=== PATIENT | male | born 1940 | race Caucasian/White ===

== ENCOUNTER 2017-06-26 09:21 | Emergency (ER) | payer MEDICARE, OTHER ==
--- NOTE | 2017-06-26 09:51 | ERPHSYRPT ---
- History of Present Illness Time Seen by Provider: 06/26/17 09:37 Source: patient, family ( and son) Patient Subjective Stated Complaint: Pt states "I fell a couple of days ago and hurt my back." Triage Nursing Assessment: Pt alert and oriented X3, skin pwd. Pt ambulates with an unsteady gait, uses a cane. Pt slightly hunched over, groaning. Physician History: CC: fall Hx: 76 y/o patient of Dr Henry with low back pain after falling 2 days ago. Told family this AM he thinks his back is broke. He hit his head and had a large gooseegg. He denies syncope or LOC. He has some chronic confusion and some tardive dyskinesia. No chest or abd pain. He smokes. Denies shortness of breath. Takes ASA daily. Occurred: days ago (2) Loss of Consciousness: unsure Allergies/Adverse Reactions: No Known Drug Allergies Allergy (Unverified 06/26/17 09:36) Home Medications: Meclizine HCl 25 mg [Antivert 25 mg] 25 mg PO DAILY 06/26/17 [History] Hx Tetanus, Diphtheria Vaccination/Date Given: Yes Hx Influenza Vaccination/Date Given: Yes Hx Pneumococcal Vaccination/Date Given: Yes Immunizations Up to Date: Yes - Review of Systems Constitutional: Fatigue, Malaise, Weakness, No Fever, No Chills Eyes: No Symptoms Ears, Nose, & Throat: No Symptoms Respiratory: No Cough, No Dyspnea Cardiac: No Chest Pain Abdominal/Gastrointestinal: No Abdominal Pain, No Nausea, No Vomiting Genitourinary Symptoms: Hesitancy Musculoskeletal: Back Pain, Fall, Injury, No Neck Pain Skin: No Rash Neurological: No Focal Weakness, No Headache, No Parasthesia All Other Systems: Reviewed and Negative - Past Medical History Pertinent Past Medical History: Yes Neurological History: Migraines, TIA Cardiac History: High Cholesterol Respiratory History: COPD Endocrine Medical History: No Pertinent History Musculoskeletal History: Arthritis GI Medical History: No Pertinent History History: No Pertinent History Psycho-Social History: No Pertinent History Male Reproductive Disorders: No Pertinent History - Past Surgical History Past Surgical History: No - Social History Smoking Status: Current every day smoker How long have you smoked: years Exposure to second hand smoke: Yes Drug Use: none Patient Lives Alone: No - Nursing Vital Signs Nursing Vital Signs: Initial Vital Signs Temperature 97.9 F 06/26/17 09:27 Pulse Rate 96 H 06/26/17 09:27 Respiratory Rate 18 06/26/17 09:27 Blood Pressure 153/96 06/26/17 09:27 O2 Sat by Pulse Oximetry 96 06/26/17 09:27 Pain Scale Pain Intensity [Back] 9 Pain Intensity 9 - Physical Exam General Appearance: alert Head Injury: contusions (right posterior parietal) Eye Exam: PERRL/EOMI ENT Exam: airway nml Respiratory/Chest Exam: normal breath sounds, No chest tenderness Cardiovascular Exam: normal heart sounds, regular rate/rhythm Gastrointestinal Exam: soft, No tenderness, No distention Genitalia Exam: normal genital exam Back Exam: normal inspection, vertebral tenderness Extremity Exam: normal inspection, normal range of motion Neurologic Exam: alert, cooperative, 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, sensation nml, other (mildly confused), No motor deficits Skin Exam: warm, dry, No rash SpO2 Interpretation: normal SpO2: 96 Oxygen Delivery: Room Air - Course Nursing assessment & vital signs reviewed: Yes Ordered Tests: Active Orders 24 hr Category Date Time Status IV Insertion STAT Care 06/26/17 09:44 Active CERVICAL SPINE WO CONTRAST [CT] Stat Exams 06/26/17 09:45 Completed CHEST 2 VIEWS (PA AND LAT) Stat Exams 06/26/17 09:45 Completed HEAD WITHOUT CONTRAST [CT] Stat Exams 06/26/17 09:45 Completed LUMBAR LIMITED (2 OR 3 VIEWS) Stat Exams 06/26/17 09:46 Completed CBC W DIFF Stat Lab 06/26/17 09:50 Completed CMP Stat Lab 06/26/17 09:50 Completed UA W/RFX UR CULTURE Stat Lab 06/26/17 09:44 Ordered Medication Summary Discontinued Medications Generic Name Dose Route Start Last Admin Trade Name Freq PRN Reason Stop Dose Admin Fentanyl Citrate 50 mcg 06/26/17 10:43 06/26/17 10:48 Sublimaze 100 Mcg/2 Ml IV 06/26/17 10:44 50 mcg STAT ONE Administration Fentanyl Citrate Confirm 06/26/17 10:46 Sublimaze 100 Mcg/2 Ml Administered 06/26/17 10:47 Dose 100 mcg .ROUTE .Zerista-Sazze ONE Lab/Rad Data: Laboratory Result Diagrams 06/26/17 09:50 06/26/17 09:50 Laboratory Results 06/26/17 06/26/17 Range/Units 09:50 09:50 WBC 11.2 H (4.0-10.5) K/mm3 RBC 5.24 (4.1-5.6) M/mm3 Hgb 16.6 (12.5-18.0) gm/dl Hct 49.6 (42-50) % MCV 94.7 (78-100) fl MCH 31.7 (26-32) pg MCHC 33.5 (32-36) g/dl RDW 14.4 H (11.5-14.0) % Plt Count 242 (150-450) K/mm3 MPV 10.5 H (6-9.5) fl Gran % 74.2 H (36.0-66.0) % Eos # (Auto) 0.40 (0-0.5) Absolute Lymphs (auto) 1.53 (1.0-4.6) Absolute Monos (auto) 0.94 (0.0-1.3) Lymphocytes % 13.7 L (24.0-44.0) % Monocytes % 8.4 (0.0-12.0) % Eosinophils % 3.6 (0.00-5.0) % Basophils % 0.1 (0.0-0.4) % Absolute Granulocytes 8.31 H (1.4-6.9) Basophils # 0.01 (0-0.4) Sodium 142 (137-145) mmol/L Potassium 4.1 (3.5-5.1) mmol/L Chloride 107 (98-107) mmol/L Carbon Dioxide 25 (22-30) mmol/L Anion Gap 14.0 (5-15) MEQ/L BUN 24 H (9-20) mg/dL Creatinine 0.86 (0.66-1.25) mg/dL Estimated GFR > 60.0 ML/MIN Glucose 93 (74-106) mg/dL Calcium 9.3 (8.4-10.2) mg/dL Total Bilirubin 1.80 H (0.2-1.3) mg/dL AST 22 (17-59) U/L ALT 18 (0-50) U/L Alkaline Phosphatase 79 (38-126) U/L Serum Total Protein 7.1 (6.3-8.2) g/dL Albumin 4.2 (3.5-5.0) g/dL - Progress Progress Note: 06/26/17 10:51 L/S xray: 3 views of the lumbar spine again demonstrates moderate levorotoscoliosis centered at L4 and progressive worsening multilevel degenerative changes again greatest at the L3- S1 levels. No new/acute findings. CXR: Nonacute hyperinflated chest with chronic features. Cervical CT: 1. Negative for acute fracture. 2. Cervical lordotic straightening, positional versus paraspinal spasm. 3. Multilevel degenerative changes including minimal C4 and C7 degenerative anterolisthesis. 4. Mild biapical subpleural cystic changes. Head: 1. Nonacute senile brain. 2. Incidental paranasal sinus disease and right mastoidectomy. Lumbar xray: 3 views of the lumbar spine again demonstrates moderate levorotoscoliosis centered at L4 and progressive worsening multilevel degenerative changes again greatest at the L3- S1 levels. No new/acute findings. 06/26/17 11:15 Reviewed xray and labs with pt and family. Discussed fall precautions. He has cane and walker. They will use APAP for pain as to avoid narcotics. Will arrnage follow up with Dr Henry. Counseled pt/family regarding: lab results, diagnosis, need for follow-up, rad results - Departure Time of Disposition: 11:17 Departure Disposition: Home Clinical Impression: Fall from standing, Lumbar sprain Condition: Fair Critical Care Time: No Referrals: GIL HENRY MD [Primary Care Provider] - Instructions: Preventing Falls, Lumbar Muscle Strain (DC) Additional Instructions: See Dr Henry 11:15AM Friday, June 30. Use cane or walker. No driving. Take care not to fall. Return for problems or concerns. Use tylenol as directed for pain.
[2017-06-26 10:04] LABS: BASOPHIL % 0.1 % (0.0-0.4); Basophil (Absolute #) 0.01 (0-0.4); Eosinophil % 3.6 % (0.00-5.0); Granulocyte Absolute (ANC) 8.31 (1.4-6.9); Granulocytes % 74.2 % (36.0-66.0); Hematocrit 49.6 % (42-50); Hemoglobin 16.6 gm/dl (12.5-18.0); Lymphocyte (Absolute #) 1.53 (1.0-4.6); Lymphocytes % 13.7 % (24.0-44.0); Mean Cell Volume 94.7 fl (78-100); Mean Corpuscular Hemoglobin 31.7 pg (26-32); Mean Corpuscular Hgb Concent. 33.5 g/dl (32-36); Mean Platelet Volume 10.5 fl (6-9.5); Monocyte (Absolute #) 0.94 (0.0-1.3); Monocytes % 8.4 % (0.0-12.0); Platelet Count 242 K/mm3 (150-450); Red Blood Count 5.24 M/mm3 (4.1-5.6); Red Cell Distribution Width 14.4 % (11.5-14.0); White Blood Count 11.2 K/mm3 (4.0-10.5)
[2017-06-26 10:21] LABS: ALBUMIN 4.2 g/dL (3.5-5.0); ALKALINE PHOSPHATASE 79 U/L (38-126); BLOOD UREA NITROGEN 24 mg/dL (9-20); CHLORIDE 107 mmol/L (98-107); Calcium 9.3 mg/dL (8.4-10.2); Carbon Dioxide 25 mmol/L (22-30); Creatinine 1 0.86 mg/dL (0.66-1.25); Glucose 93 mg/dL (74-106); Potassium 4.1 mmol/L (3.5-5.1); SGOT/AST 22 U/L (17-59); SGPT/ALT 18 U/L (0-50); SODIUM 142 mmol/L (137-145); Total Protein 7.1 g/dL (6.3-8.2)
--- NOTE | 2017-06-26 10:41 | XRAY ---
Indication: Head injury and confusion following fall. Multiple contiguous axial images obtained through the head without contrast. Comparison: None Age-appropriate global atrophy and minimal periventricular degenerative micro-ischemia. No acute intracranial hemorrhage, abnormal extra-axial fluid collection, or mass effect. Fourth ventricle is midline without hydrocephalus. Bony calvarium intact. Mild mucosal thickening of both ethmoid sinuses and previous right mastoidectomy. Remaining visualized paranasal sinuses and left mastoid air cells are clear. Impression: 1. Nonacute senile brain. 2. Incidental paranasal sinus disease and right mastoidectomy. CT DI 51.07
[2017-06-26] MEDS ORDERED: SUBLIMAZE 100 MCG/2 ML IV ONE (10:43)
[2017-06-26] MEDS ORDERED: SUBLIMAZE 100 MCG/2 ML ONE (10:46)
--- NOTE | 2017-06-26 10:46 | XRAY ---
Indication: Head injury and confusion following fall. Multiple contiguous axial images obtained through the cervical spine. Sagittal and coronal reformatted images obtained. Comparison: None Axial images negative for acute fracture, suspicious bony lesions, or spinal canal stenosis. Mild/moderate C3-C7 degenerative endplate spurring greatest at the C5-C7 levels narrowing the spinal canal. Also mild/moderate multilevel bilateral degenerative facet arthropathy. Sagittal and coronal reformatted images demonstrates lordotic straightening, positional versus paraspinal spasm. Also multilevel disc space narrowing greatest at the C5-C7 levels. Minimal 1-2 mm C4 and C7 anterolisthesis presumed degenerative. No acute compression fracture or jumped facet. Normal-appearing craniocervical junction. Visualized noncontrasted soft tissues unremarkable. Mild biapical subpleural cystic changes. CT head reported separately. Impression: 1. Negative for acute fracture. 2. Cervical lordotic straightening, positional versus paraspinal spasm. 3. Multilevel degenerative changes including minimal C4 and C7 degenerative anterolisthesis. 4. Mild biapical subpleural cystic changes. CTDI 41.50
--- NOTE | 2017-06-26 10:51 | XRAY ---
Indication: Pain following fall. Comparison: October 28, 2006. 3 views of the lumbar spine again demonstrates moderate levorotoscoliosis centered at L4 and progressive worsening multilevel degenerative changes again greatest at the L3-S1 levels. No new/acute findings.
--- NOTE | 2017-06-26 10:53 | XRAY ---
Indication: Back pain following fall. Comparison: None PA/lateral chest hyperinflated and clear. Heart is not enlarged. Vascularity normal. Bony thorax intact with mild osteopenia and minimal degenerative changes. Impression: Nonacute hyperinflated chest with chronic features.
[2017-06-26 11:20] VITALS: BP 165/87; PULSE 68; O2SAT 95
== END 2017-06-26 11:34 | disposition home or self-care (01) ==
LOC: ED 09:21
DX: S33.5XXA Sprain of ligaments of lumbar spine, initial encounter (principal); S00.93XA Contusion of unspecified part of head, initial encounter; M54.5 Low back pain; R53.1 Weakness; R53.83 Other fatigue; R41.0 Disorientation, unspecified; W18.30XA Fall on same level, unspecified, initial encounter; G24.01 Drug induced subacute dyskinesia
CPT/HCPCS: 36000; 36415; 70450; 71046; 72100; 72125; 80053; 85025; 96374; 99283; 99284; J3010

== ENCOUNTER 2017-12-18 12:39 | Emergency (ER) | payer MEDICARE, OTHER ==
[2017-12-18] MEDS ORDERED: XYLOCAINE 1% HCL 20 ML MDV IJ ONE (13:06)
[2017-12-18] MEDS ORDERED: TENIVAC VIAL IM ONE ×2 (13:06→13:10)
[2017-12-18] MEDS ORDERED: XYLOCAINE 1% HCL 20 ML MDV ONE (13:10)
--- NOTE | 2017-12-18 13:22 | ERPHSYRPT ---
- History of Present Illness Time Seen by Provider: 12/18/17 12:58 Source: patient Exam Limitations: no limitations Patient Subjective Stated Complaint: fell into kitchen cabnit and has laceration to right index and middle finger, has laceration to left lip, family states he falls a lot at home Triage Nursing Assessment: pt alert, no loc, skin w/d/p. laceation to right hand with no cleeding, no loc, small amt of bleeding to lip Physician History: This is a 77-year-old white male arrives with complaint of laceration to his buccal surface of his left side of his mouth, laceration to his left cheek, and lacerations to his right hand symptoms since just prior to arrival. Patient's family states he fell into a cabinet. Past medical history includes migraines, TIA, hypercholesterolemia, COPD, arthritis. Past surgical history is negative . Timing/Duration: today Modifying Factors: Improves With: other Associated Symptoms: No nausea, No vomiting, No abdominal pain, No shortness of breath, No heartburn, No diaphoresis, No cough, No chills, No chest pain, No fever, No headaches, No loss of appetite, No malaise, No rash, No syncope, No seizure, No weakness Allergies/Adverse Reactions: No Known Drug Allergies Allergy (Verified 12/18/17 12:54) Home Medications: Meclizine HCl 25 mg [Antivert 25 mg] 25 mg PO DAILY 06/26/17 [History] Hx Tetanus, Diphtheria Vaccination/Date Given: No Hx Influenza Vaccination/Date Given: No Hx Pneumococcal Vaccination/Date Given: No Immunizations Up to Date: No - Review of Systems Constitutional: No Fever, No Chills Eyes: No Symptoms Ears, Nose, & Throat: Other (laceration buccal surface left side of mouth), No Ear Pain, No Ear Discharge, No Hearing Changes, No Tinnitus, No Nose Pain, No Nose Congestion, No Nose Discharge, No Sinus Drainage, No Epistaxis, No Mouth Pain, No Mouth Swelling, No Loose Teeth, No Throat Pain, No Throat Swelling, No Hoarse, No Painful Swallowing, No Snoring, No Stridor Respiratory: No Cough, No Dyspnea Cardiac: No Chest Pain, No Edema, No Syncope Abdominal/Gastrointestinal: No Abdominal Pain, No Nausea, No Vomiting, No Diarrhea Genitourinary Symptoms: No Dysuria Musculoskeletal: Other (lacerations 2 right hand), No Back Pain, No Neck Pain Skin: Other (laceration buccal surface(left side) mouth, left laceration left cheek, laceration 2 right dorsal hand), No Rash Neurological: No Dizziness, No Focal Weakness, No Sensory Changes Psychological: No Symptoms Endocrine: No Symptoms All Other Systems: Reviewed and Negative - Past Medical History Pertinent Past Medical History: Yes Neurological History: TIA Cardiac History: High Cholesterol, Hypertension Respiratory History: COPD Endocrine Medical History: No Pertinent History Musculoskeletal History: Arthritis GI Medical History: No Pertinent History History: No Pertinent History Psycho-Social History: No Pertinent History Male Reproductive Disorders: No Pertinent History Other Medical History: [place] - Past Surgical History Past Surgical History: Yes Gastrointestinal: Hernia Repair Male Surgical History: Vasectomy - Social History Smoking Status: Current every day smoker How long have you smoked: years Exposure to second hand smoke: No Drug Use: none Patient Lives Alone: No - Nursing Vital Signs Nursing Vital Signs: Initial Vital Signs Blood Pressure 167/94 12/18/17 12:42 Pain Scale Pain Intensity 0 - Physical Exam General Appearance: mild distress, alert Eye Exam: PERRL/EOMI, eyes nml inspection Ears, Nose, Throat Exam: other (2.5 cm buccal mucosa left side of mouth. 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 1.5 cm skin tear dorsal hand (right) second intertriginous area 1 cm laceration left cheek) SpO2 Interpretation: normal - Course Nursing assessment & vital signs reviewed: Yes Ordered Tests: Active Orders 24 hr Category Date Time Status Prepare for Sutures STAT Care 12/18/17 13:06 Active Sutures STAT Care 12/18/17 13:07 Active Wound Care STAT Care 12/18/17 13:06 Active Medication Summary Discontinued Medications Generic Name Dose Route Start Last Admin Trade Name Vickey PRN Reason Stop Dose Admin Lidocaine HCl 5 ml 12/18/17 13:06 Xylocaine 1% Hcl 20 Ml Mdv IJ 12/18/17 13:07 STAT ONE Lidocaine HCl Confirm 12/18/17 13:10 Xylocaine 1% Hcl 20 Ml Mdv Administered 12/18/17 13:11 Dose 5 ml .ROUTE .STK-MED ONE Tetanus/Diphtheria Toxoids Adsorbed 0.5 ml 12/18/17 13:06 12/18/17 13:15 Tenivac Vial IM 12/18/17 13:07 0.5 ml .ONCE ONE Administration Tetanus/Diphtheria Toxoids Adsorbed Confirm 12/18/17 13:10 Tenivac Vial Administered 12/18/17 13:11 Dose 0.5 ml IM .STK-MED ONE - Progress Progress: improved Progress Note: 12/18/17 14:05 77-year-old white male brought by his family with complaint of a 2 cm laceration right dorsal hand first intertriginous area. A 1.5 cm skin tear right dorsal hand second intertriginous area. A 1 cm laceration to his left cheek, And a 2.5 cm laceration to his left buccal mucosa, This was suffered after he fell into a cabinet at home. Patient has chronic slow speech this family states that he has had a TIA in the past he has no new neurologic changes. Laceration repair. 2 cm laceration right hand first intertriginous area anesthetized with 1% lidocaine sterilely prepped and sutured with 2 5. 0 Prolene sutures 1.5 cm Laceration dorsal right hand anesthetized with 1% lidocaine sterilely prepped and repaired with Dermabond, Laceration 1 cm left cheek repaired with 2 5. 0 Prolene sutures . After sterilely prepped and draped and anesthetized with 1% lidocaine. 2.5 cm Laceration buccal mucosa anesthetized with 1% lidocaine and sutured with 3 4. 0 chromic sutures. - Departure Time of Disposition: 14:09 Departure Disposition: Home Clinical Impression: Accidental fall Qualifiers: Encounter type: initial encounter Qualified Code(s): W19.XXXA - Unspecified fall, initial encounter Laceration of face Qualifiers: Encounter type: initial encounter Qualified Code(s): S01.81XA - Laceration without foreign body of other part of head, initial encounter Laceration of hand Qualifiers: Encounter type: initial encounter Foreign body presence: without foreign body Laterality: right Qualified Code(s): S61.411A - Laceration without foreign body of right hand, initial encounter Laceration of buccal mucosa Qualifiers: Encounter type: initial encounter Qualified Code(s): S01.512A - Laceration without foreign body of oral cavity, initial encounter Condition: Fair Critical Care Time: No Referrals: GIL HENRY MD [Primary Care Provider] - Instructions: Laceration Repair With Stitches (DC) Additional Instructions: Return home. Cold packs to left cheek 24 hours off and on. Do not chew on internal stitches. Bacitracin to sutured areas only external sutures daily until healed. Do not apply ointments to areas which were repaired with skin glue. external Sutures out in 5 days. Follow-up with your family doctor or return if problems or signs of infection. Return for acute distress or for severe symptoms.
[2017-12-18 14:14] VITALS: O2SAT 98
[2017-12-18 14:48] VITALS: BP 180/88; PULSE 78
== END 2017-12-18 14:48 | disposition home or self-care (01) ==
LOC: ED 12:39
DX: S61.411A Laceration without foreign body of right hand, initial encounter (principal); S01.412A Laceration without foreign body of left cheek and temporomandibular area, initial encounter; S01.512A Laceration without foreign body of oral cavity, initial encounter; W01.198A Fall on same level from slipping, tripping and stumbling with subsequent striking against other object, initial encounter; Y93.9 Activity, unspecified; Y92.000 Kitchen of unspecified non-institutional (private) residence as the place of occurrence of the external cause
CPT/HCPCS: 12002; 12011; 90471; 90714; 96372; 99284

== ENCOUNTER 2018-01-22 17:23 | Emergency (ER) | payer MEDICARE, OTHER ==
[2018-01-22 17:42] VITALS: BP 158/100; PULSE 80; O2SAT 98
--- NOTE | 2018-01-22 18:03 | ERPHSYRPT ---
- History of Present Illness Time Seen by Provider: 01/22/18 17:45 Source: patient, family Exam Limitations: no limitations Patient Subjective Stated Complaint: FAMILY STATES HE LOST HIS BALANCE STRIKING HIS HEAD . NO LOC. Triage Nursing Assessment: ALERT AND ORIENTED. STATES HE SLIPPED STRIKING HIS HEAD ON THE SIDE RAIL. NO LOC. ELVIRA. LAC APPROX 3 CM WITH NO ACTIVE BLEEDING NOTED. 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 no loc. pt takes 2 asa a day. no other anticoag tx. pts spouse does not want a ct scan of head. pt has chronic dementia Occurred: just prior to arrival Reason for Fall: lost balance Injuries/Pain Location: head Loss of Consciousness: no loss of consciousness Severity of Pain-Max: mild Severity of Pain-Current: mild Associated Symptoms (Fall): confusion (chronic), trouble walking (chronic), No abdominal pain, No back pain, No chest pain, No dizziness, No headache, No lightheadedness, No neck pain, No slurred speech Allergies/Adverse Reactions: No Known Drug Allergies Allergy (Verified 12/18/17 12:54) Home Medications: Meclizine HCl 25 mg [Antivert 25 mg] 25 mg PO DAILY 06/26/17 [History] Hx Tetanus, Diphtheria Vaccination/Date Given: No Hx Influenza Vaccination/Date Given: No Hx Pneumococcal Vaccination/Date Given: No - Review of Systems Constitutional: No Symptoms Eyes: No Symptoms Ears, Nose, & Throat: No Symptoms Respiratory: No Symptoms Cardiac: No Symptoms Abdominal/Gastrointestinal: No Symptoms Genitourinary Symptoms: No Symptoms Musculoskeletal: No Symptoms Skin: Other (right scalp laceration) Neurological: No Symptoms Psychological: No Symptoms Endocrine: No Symptoms Hematologic/Lymphatic: No Symptoms Immunological/Allergic: No Symptoms All Other Systems: Reviewed and Negative - Past Medical History Pertinent Past Medical History: Yes Neurological History: TIA Cardiac History: High Cholesterol, Hypertension Respiratory History: COPD Endocrine Medical History: No Pertinent History Musculoskeletal History: Arthritis GI Medical History: No Pertinent History History: No Pertinent History Psycho-Social History: No Pertinent History Male Reproductive Disorders: No Pertinent History Other Medical History: [place] - Past Surgical History Past Surgical History: Yes Gastrointestinal: Hernia Repair Male Surgical History: Vasectomy - Social History Smoking Status: Current every day smoker How long have you smoked: years Exposure to second hand smoke: No Drug Use: none Patient Lives Alone: No - Nursing Vital Signs Nursing Vital Signs: Initial Vital Signs Temperature 98 F 01/22/18 17:33 Pulse Rate 80 01/22/18 17:33 Respiratory Rate 16 01/22/18 17:33 Blood Pressure 158/100 01/22/18 17:33 O2 Sat by Pulse Oximetry 98 01/22/18 17:33 Pain Scale Pain Intensity 0 - Keira Coma Score Best Eye Response (Keira): (4) open spontaneously Best Verbal Response (Keira): (5) oriented Best Motor Response ([place]): (6) obeys commands [place] Total: 15 - Physical Exam General Appearance: no apparent distress Head Injury: lacerations (4cm right parietal scalp lac; mild oozing present), No Fitzgerald's Sign, No raccoon eyes Eye Exam: PERRL/EOMI, eyes nml inspection ENT Exam: airway nml, nml ext.inspection, No evidence of ENT injury, No dental injury Neck Exam: supple, trachea midline, full range of motion, normal alignment, normal inspection Respiratory/Chest Exam: normal breath sounds, No chest tenderness, No respiratory distress, No rhonchi, No wheezing Cardiovascular Exam: normal heart sounds, regular rate/rhythm, normal peripheral pulses Gastrointestinal Exam: soft, normal bowel sounds, No tenderness Rectal Exam: not done Extremity Exam: normal inspection, normal range of motion Neurologic Exam: dysarthria (chronic; pt with dementia and parkinsons like disorder) Skin Exam: laceration (right parietal scalp mild oozing of blood from 4cm lac.) SpO2 Interpretation: normal SpO2: 98 Oxygen Delivery: Room Air Procedures - Laceration/Wound Repair Parietal Wound Location: Right, head Wound Length (cm): 4 Wound's Depth, Shape: superficial Wound Explored: clean Irrigated: No Hibiclens Prep: Yes Wound Repaired With: Jennifer (5) Layer Closure?: No - Course Nursing assessment & vital signs reviewed: Yes Ordered Tests: Active Orders 24 hr Category Date Time Status Wound Care STAT Care 01/22/18 18:13 Ordered Medication Summary Discontinued Medications Generic Name Dose Route Start Last Admin Trade Name Freq PRN Reason Stop Dose Admin Bacitracin Zinc Confirm 01/22/18 18:09 Baciguent Packet Administered 01/22/18 18:10 Dose 1 gm .ROUTE .STK-MED ONE - Progress Progress: improved Counseled pt/family regarding: diagnosis, need for follow-up - Departure Time of Disposition: 18:11 Departure Disposition: Home (sca;p) Clinical Impression: Scalp laceration Condition: Stable Critical Care Time: No Referrals: GIL HENRY MD [Primary Care Provider] - Additional Instructions: keep dry for 24 hours. after 24 hours, may wash daily and apply daily antibiotic ointment. staple removal in 8 days. may use tylenol for pain
[2018-01-22] MEDS ORDERED: BACIGUENT PACKET ONE (18:09)
[2018-01-22] MEDS ORDERED: BACIGUENT PACKET TP ONE (18:13)
== END 2018-01-22 18:39 | disposition home or self-care (01) ==
LOC: ED 17:23
DX: S01.01XA Laceration without foreign body of scalp, initial encounter (principal); W07.XXXA Fall from chair, initial encounter; Y93.9 Activity, unspecified; Y92.009 Unspecified place in unspecified non-institutional (private) residence as the place of occurrence of the external cause; Z79.899 Other long term (current) drug therapy; Z86.73 Personal history of transient ischemic attack (TIA), and cerebral infarction without residual deficits
CPT/HCPCS: 12002; 99283; A9270-GY